=== PATIENT | male | born 1960 | race Caucasian/White ===

== ENCOUNTER 2024-03-24 09:15 | Day surgery (SDC) | payer OTHER, SELFPAY ==
[2024-03-24] VITALS (12 sets, daily range): BP systolic 90–143; BP diastolic 55–85; PULSE 68–85; RESP 16–18; TEMP 36.1–36.6; O2SAT 92–100; BMI 32.7
[2024-03-24] MEDS: Lactated Ringers 1,000 ML 15 ML IV (09:47)
--- NOTE | 2024-03-24 10:13 | PCM.PRE.AN2 ---
ASA Classification* ASA Classification ASA Classification: 3 Assessment & Plan Anesthesia* Anesthesia Assessment Anesthesia Assessment: Discussed sedation and/or anesthesia options, risks, benefits, and alternatives with patient/parents/legal guardian/POA. Questions invited. The patient/parents/legal guardian/POA seems to understand and agrees to proceed with anesthesia plan. Reviewed the physical assessment, medical history, allergy history and patient home medications list prior to surgery/procedure/anesthetic and documented any changes. Performed airway and anesthesia risk assessments. Anesthesia Type Anesthesia Type: General History Source History Obtained from:: Patient and Chart Anesthesia Focused Assessment* Temperature: 97.5 F Pulse Rate: 76 Blood Pressure: 130/73 Respiratory Rate: 18 Pulse Ox: 100 Oxygen Delivery Method: Room Air Airway Assessment Mouth opens: >3 cm Mallampati Score: II Teeth Condition: Missing (Multiple missing teeth. Rest of the teeth are tight.) Neck Range of motion (ROM): Full ROM Pertinent Findings EKG Pertinent Findings:: March 19, 2024. Normal sinus rhythm. inferior infarct. Focused Labs Anesthesia Preop lab: CBC CHEMISTRY COAG Pre-Assessment Diagnosis/Proposed Procedure Planned Operative Procedure(s): ORIF LEFT WRIST Anesthesia History Anesthesia History - bryologist: Anesthesia History - bryologist Hx Hospitalization No 03/20/24 10:33 Any Problems With Anesthesia No 03/20/24 10:33 Cholinesterase deficiency No 03/20/24 10:33 You/Your Family Experience No 03/20/24 10:33 fever (hyperthermia) with Relationship Recent Exposure to Contagious No 03/24/24 09:33 Disease Does patient have nerve No 03/20/24 10:33 stimulator Patient instructed to have device shut off --Does patient have Pacemaker No 03/24/24 09:33 or ICD? When Was Last Pacemaker Check QUESTION #4 FULL TEXT: You/Your Family Experience fever (hyperthermia) with Anesthesia Last Oral Intake Last Oral intake: Last Oral Intake NPO since Meds taken in AM with sips of Yes 03/24/24 09:33 water? Meds patient instructed to see medlist 03/24/24 09:33 take am of surgery Any additional information?: Yes NPO since: 21:00 PONV PONV - bryologist: PONV - bryologist Female No 03/20/24 10:33 HX of Motion Sickness No 03/20/24 10:33 HX of N/V After Surgery No 03/20/24 10:33 Non-Smoker Yes 03/20/24 10:33 Duration of Surgery greater Yes 03/20/24 10:33 than 60 minutes Number of Risk Factors 2 03/20/24 10:33 PONV Score Moderate Risk 03/20/24 10:33 Height & Weight Height & Weight: Anesthesia: Height & Weight Height 5 ft 6 in 03/24/24 09:33 Weight: 92 kg 03/24/24 09:33 Body Mass Index (BMI) 32.7 03/24/24 09:33 Respiratory Assessment Respiratory Assessment - bryologist: Respiratory Tract Infection Hx - bryologist Hx Respiratory Tract Infection No 03/20/24 10:33 STOP Sleep Apnea STOP Sleep Apnea - bryologist: STOP Sleep Apnea - bryologist Hx Hypertension Yes: CONTROLLED WITH MEDS 03/20/24 10:33 Hx Sleep Apnea No 03/20/24 10:33 CPAP BIPAP Do you snore loudly (louder No 03/20/24 10:33 than talking or can be heard Do you often feel tired/ No 03/20/24 10:33 fatigued/ sleepy during daytime? Has anyone observed you stop No 03/20/24 10:33 breathing during sleep? STOP Results Negative 03/20/24 10:33 QUESTION #5 FULL TEXT : Do you snore loudly (louder than talking or can be heard through closed doors)? Tobacco Use History Tobacco Use History - bryologist: Tobacco Use History - bryologist Tobacco Use Smoking Status Former smoker 03/20/24 10:33 Hx Tobacco Use No 03/20/24 10:33 Years Smoking Packs Smoked per Day Smoking Cessation Date was Yes - quit smoking within 15 03/20/24 10:33 within the last 15 years years Hx Smoking Cessation Date Hx Smoking Cessation Counseling Hematologic Medial History Hematologic Hx - bryologist: Hematologic Medical Hx - lacer and tier Hx of Blood Transfusion No 03/20/24 10:33 Hx of Transfusion in last 3 No 03/20/24 10:33 Months Date of Last Transfusion (if within last 3 months) Ever experience any problems No 03/20/24 10:33 with transfusion(s)? Specify any problems Hx of Preganancy in last 3 N/A 03/20/24 10:33 Months Nurse Filling Out Transfusion DSCHRIBER 03/20/24 10:33 & Questions: Date: 03/20/24 03/20/24 10:33 Time: 10:35 03/20/24 10:33 Patient unable to answer at this time (ie. confused, unrespo /Reproduction History /Reproductive History - bryologist: /Reproductive Hx- bryologist Hx Now No 03/20/24 10:33 Gestational Age (in weeks): EDC: Hx Hx Para Hx Section SAB No 03/20/24 10:33 Active Medications Active Medications: Current Medications Generic Name Dose Route Start Last Admin Trade Name Freq PRN Reason Stop Dose Admin Cefazolin Sodium 2 gm/ Sodium 110 mls @ 150 mls/hr 03/24/24 10:45 Chloride IV 03/24/24 11:28 PREOP ONE Lactated Ringer's 1,000 mls @ 15 mls/hr 03/24/24 09:30 03/24/24 09:47 IV 15 mls/hr .Q48H ALICJA Administration PFSH Medical History (Updated 03/20/24 @ 10:43 by Charlee Wesley) Loss of hearing Wears glasses Wears dentures Depression Alcohol use Thyroid disease Arthritis Diabetes Anemia High cholesterol Back pain Injury of back Migraine headache Dietary restriction History of ulceration Gastric reflux Former smoker History of heart attack Hypertension Home Medications ?Medication ?Instructions ?Recorded ?Last Taken ?Type atorvastatin 40 mg tablet 40 mg PO QHS 03/20/24 Unknown History cyclobenzaprine 10 mg tablet 10 mg PO TID PRN PRN muscle spasm 03/20/24 Unknown History empagliflozin 5 mg-metformin 500 1 tab PO BID 03/20/24 Unknown History mg tablet (Synjardy) ferrous sulfate 324 mg (65 mg 324 mg PO BID 03/20/24 Unknown History iron) tablet,delayed release hydrocodone 7.5 mg-acetaminophen 1 tab PO 4X/DAY 03/20/24 Unknown History 325 mg tablet lisinopril 20 mg tablet 20 mg PO QHS 03/20/24 Unknown History metoprolol tartrate 25 mg tablet 25 mg PO BID 03/20/24 03/24/24 History pantoprazole 40 mg tablet,delayed 40 mg PO BID 03/20/24 03/24/24 History release thyroid (pork) 90 mg tablet 90 mg PO DAILY 03/20/24 03/24/24 History ([place] Thyroid) venlafaxine 37.5 mg 37.5 mg PO DAILY 03/20/24 03/24/24 History capsule,extended release 24 hr Allergy/AdvReac Type Severity Reaction Status Date / Time ketorolac (From Toradol) AdvReac Intermediate Other Verified 03/24/24 09:31 meloxicam AdvReac Intermediate Nausea Verified 03/24/24 09:31 Surgical History (Updated 03/20/24 @ 10:43 by Charlee Wesley) Hx of colonoscopy History of coronary artery stent placement Hx of heart surgery Social History Smoking Status: Former smoker Review of Systems (Anesthesia) ROS Narrative System reviewed and no additional complaints, except as documented.
[2024-03-24 10:25] LABS: Bedside Glucose 139 mg/dL (74-106)
[2024-03-24] MEDS: Cefazolin 2 GM in 0.9% Normal Saline (100mL Bag) 100 ML IV (10:28)
--- NOTE | 2024-03-24 10:56 | RAD_ITS ---
INDICATION: FX EXAMINATION/TECHNIQUE: X-RAY - LEFT XR Wrist 2 Views 3 VIEWS COMPARISON: No relevant prior comparison study available FINDINGS: Views of the wrist were obtained intraoperatively on a C-arm for open reduction internal fixation of fracture of the distal radius. Side plate and screws are seen. The examination was performed for documentation. Number of fluoroscopic images: 2 Fluoroscopy time: 43.4 seconds. Radiation dose: 1.12 mGy RAD/Wrist 2 Views IMPRESSION: Intraoperative exam as described above. Electronically Signed: Avery Sweet MD at 12:20 EDT ,
[2024-03-24] MEDS: Bupiv/Epi 0.25% 30 ML Vial (11:40)
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
--- NOTE | 2024-03-24 12:19 | PCM.POST.ANE ---
Anesthesia: Postop Eval I Current Vital Signs Temperature: 97.5 F Pulse Rate: 75 Blood Pressure: 90/59 Respiratory Rate: 18 Pulse Ox: 95 Oxygen Delivery Method: Nasal Cannula Oxygen Flow Rate (L/min): 3 Assessment Airway patent: Yes Spontaneous unlabored respirations: Yes Mental status: Awake and Calm nausea: No Vomiting: No Anesthesia Complication: No Fluid Hydration Crystalloid volume administer (ml): 1,050 Total IV fluid infused: 1,050 Progress Note Post-operative progress note: LEFT AXILLARY US GUIDED NERVE BLOCK; TOLERATED WELL Anesthesia document: Postop Eval 1 completed: Yes
[2024-03-24] MEDS: HYDROcodone Bitartrate/Apap 5/325 Tablet PO (13:47)
--- NOTE | 2024-03-24 13:58 | POSTOPAN2_ITS ---
Anesthesia Postop Eval I Sum Postop Eval Completion status Anesthesia document: Postop Eval 1 completed: Yes Anesthesia Postop Eval I Summary Anesthesia Postop Eval I Summary: Anesthesia Postop Eval I: Assessment Summary Airway patent Yes 03/24/24 12:20 APARTMENT COORDINATOR.[email or web address] Spontaneous unlabored Yes 03/24/24 12:20 APARTMENT COORDINATOR.[email or web address] respirations Mental status Awake,Calm 03/24/24 12:20 APARTMENT COORDINATOR.[email or web address] nausea No 03/24/24 12:20 APARTMENT COORDINATOR.[email or web address] Vomiting No 03/24/24 12:20 APARTMENT COORDINATOR.SCHR Anesthesia Postop Eval I: Fluid Summary Crystalloid volume administer 1,050 03/24/24 12:20 APARTMENT COORDINATOR.SCHR (ml) Colloids volume administered ( ml) Blood Product volume administered (ml) Total IV fluid infused 1,050 03/24/24 12:20 APARTMENT COORDINATOR.SCHR Anesthesia Postop Eval I: Summary Notes Anesthesia Complication No 03/24/24 12:20 APARTMENT COORDINATOR.SCHR Anesthesia Complication Comment: Post-operative progress note LEFT AXILLARY US 03/24/24 12:20 APARTMENT COORDINATOR.SCHR GUIDED NERVE BLOCK ; TOLERATED WELL Anesthesia: Postop Eval II Evaluation Mental status: Awake and Calm Pain Level: 4 nausea: No Vomiting: No Complications Anesthesia Complication: No
--- NOTE | 2024-03-24 13:58 | PCM.POSTANE2 ---
Anesthesia Postop Eval I Sum Postop Eval Completion status Anesthesia document: Postop Eval 1 completed: Yes Anesthesia Postop Eval I Summary Anesthesia Postop Eval I Summary: Anesthesia Postop Eval I: Assessment Summary Airway patent Yes 03/24/24 12:20 CONCRETE MIXER OPERATOR [email or web address] Spontaneous unlabored Yes 03/24/24 12:20 CONCRETE MIXER OPERATOR [email or web address].[email or web address] respirations Mental status Awake,Calm 03/24/24 12:20 CONCRETE MIXER OPERATOR [email or web address] nausea No 03/24/24 12:20 CONCRETE MIXER OPERATOR [email or web address].[email or web address] Vomiting No 03/24/24 12:20 CONCRETE MIXER OPERATOR [email or web address].[email or web address] Anesthesia Postop Eval I: Fluid Summary Crystalloid volume administer 1,050 03/24/24 12:20 CONCRETE MIXER OPERATOR [email or web address].[email or web address] (ml) Colloids volume administered ( ml) Blood Product volume administered (ml) Total IV fluid infused 1,050 03/24/24 12:20 CONCRETE MIXER OPERATOR [email or web address].[email or web address] Anesthesia Postop Eval I: Summary Notes Anesthesia Complication No 03/24/24 12:20 CONCRETE MIXER OPERATOR [email or web address].[email or web address] Anesthesia Complication Comment: Post-operative progress note LEFT AXILLARY US 03/24/24 12:20 CONCRETE MIXER OPERATOR [email or web address].[email or web address] GUIDED NERVE BLOCK ; TOLERATED WELL Anesthesia: Postop Eval II Evaluation Mental status: Awake and Calm Pain Level: 4 nausea: No Vomiting: No Complications Anesthesia Complication: No
== END 2024-03-24 14:03 | disposition home or self-care (01) ==
LOC: SDC 09:19 → AC 09:21
PROVIDERS: PCP Family Medicine; Referring Provider Student in an Organized Health Care Education/Training Program; Visit Provider Student in an Organized Health Care Education/Training Program
PROC: (CPT 25609; principal; 2024-03-24 10:25)
DX: S52.572A Other intraarticular fracture of lower end of left radius, initial encounter for closed fracture (principal); E11.9 Type 2 diabetes mellitus without complications; F32.A Depression, unspecified; Z87.891 Personal history of nicotine dependence; V86.59XA Driver of other special all-terrain or other off-road motor vehicle injured in nontraffic accident, initial encounter; I25.2 Old myocardial infarction; I10 Essential (primary) hypertension; Z95.1 Presence of aortocoronary bypass graft; D64.9 Anemia, unspecified; Z95.5 Presence of coronary angioplasty implant and graft
CPT/HCPCS: 25609; 01830; 64417; 73100; 76000; 82962; C1713; J7120; J2405